=== PATIENT | female | born 1960 | race Caucasian/White ===

== ENCOUNTER 2025-02-13 07:35 | Outpatient (CLI) | payer MEDICARE, BC ==
--- NOTE | 2025-02-13 11:46 | RADIOLOGY REPORT ---
INDICATION: OCCLUSION AND STENOSIS OF BILATERAL CAROTID ARTERIES COMPARISON: None TECHNIQUE: CTA head with intravenous contrast. CTA neck with intravenous contrast. 3D image postprocessing was performed on a dedicated workstation and images were used for interpretation and reporting. Radiation Dose Information: CT Dose: CTDI volume is 12.8 mGy. Dose-length product is 491.3 mGy*cm FINDINGS: CTA head: There is normal enhancement of the visualized distal internal carotid, anterior and middle cerebral arteries. There is a normal anterior communicating artery complex. There are bilateral posterior communicating arteries. The vertebral, basilar, cerebellar and posterior cerebral arteries are within normal limits. The early parenchymal enhancement is grossly unremarkable. The visualized intracranial venous structures are grossly unremarkable. CTA neck: The visualized thoracic aortic arch and proximal great vessels are unremarkable. 50% short-segment stenosis of the proximal right internal carotid artery secondary to calcific and noncalcific plaque. Less than 50% stenosis of the proximal left internal carotid artery secondary to calcific plaque. The cervical segments of the right and left vertebral arteries are within normal limits. The limited visualized lung apices are clear. Degenerative changes of the spine. IMPRESSION: No evidence of hemodynamically significant intracranial stenosis, proximal occlusion or aneurysm. 50% short-segment stenosis of the proximal right internal carotid artery secondary to calcific and noncalcific plaque. Less than 50% stenosis of the proximal left internal carotid artery secondary to calcific plaque. All CT scans at this medical facility are performed using dose modulation techniques as appropriate to a performed exam including the following: Automated exposure control was utilized; adjustment of the MA and/or KV according to patient size; and use of iterative reconstruction technique.
== END 2025-02-13 23:59 | disposition home or self-care (01) ==
LOC: RAD 07:35
PROVIDERS: ATTEND Internal Medicine Interventional Cardiology
DX: I65.23 Occlusion and stenosis of bilateral carotid arteries (principal); E78.5 Hyperlipidemia, unspecified; I25.811 Atherosclerosis of native coronary artery of transplanted heart without angina pectoris
CPT/HCPCS: 70498; Q9967